=== PATIENT | female | born 1985 | race Caucasian/White ===

== ENCOUNTER 2018-06-14 19:43 | Emergency (ER) | payer OTHER ==
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
[2018-06-14] MEDS ORDERED: KETOROLAC TROMETHAMINE 60 MG/2 ML VIAL IM ONE (20:17)
[2018-06-14 20:18] VITALS: BP 123/62; PULSE 68; TEMP 98.3; BMI 41.5
[2018-06-14 21:22] LABS: HCG,QUALITATIVE URINE NEGATIVE
[2018-06-14] MEDS ORDERED: KETOROLAC TROMETHAMINE 60 MG/2 ML VIAL ONE (21:26)
[2018-06-14 21:35] LABS: URINE APPEARANCE CLEAR; URINE BILIRUBIN NEGATIVE (<2.0 mg/dL); URINE COLOR YELLOW; URINE GLUCOSE (UA) NEGATIVE (NEGATIVE); URINE KETONE NEGATIVE (NEGATIVE); URINE LEUK ESTERASE NEGATIVE (NEGATIVE); URINE NITRITE NEGATIVE (NEGATIVE); URINE PROTEIN NEGATIVE (NEGATIVE); URINE UROBILINOGEN NEGATIVE mg/dL (0.2-1.0)
[2018-06-14] MEDS ORDERED: CYCLOBENZAPRINE HCL 10 MG TABLET (FP) PO ONE (21:52)
[2018-06-14] MEDS ORDERED: CYCLOBENZAPRINE HCL 10 MG TABLET (FP) ONE (21:54)
--- NOTE | 2018-06-14 22:09 | PDOC ---
History of Present Illness - General Chief Complaint: Back Pain Stated Complaint: BACK PAIN Time Seen by Provider: 06/14/18 20:13 History Source: Patient Exam Limitations: No Limitations - History of Present Illness Initial Comments: 06/14/18 22:06 33-year-old female presented with low back pain worsened with standing and movement. Patient states has had muscle spasms in the past secondary to herniation of L3 L5. Patient states took Aleve this morning with no relief and so decided come to the ER. Patient denies saddle anesthesia, incontinence, or lower extremity weakness. Patient does complain of right sided sciatica. Occurred: reports: yesterday Severity: reports: moderate Pain Location: reports: back Method of Injury: Yes: unknown Modifying Factors: improves with: None Associated Symptoms (Fall): trouble walking Past History - Travel Traveled outside of the country in the last 30 days: No - Past Medical History Allergies/Adverse Reactions: Allergies Allergy/AdvReac Type Severity Reaction Status Date / Time Penicillins Allergy Severe Hives Verified 06/14/18 20:18 Home Medications: Ambulatory Orders Levothyroxine [Synthroid -] 25 mcg PO DAILY 04/19/16 Cyclobenzaprine HCl [Flexeril -] 5 mg PO TID PRN #12 tablet 06/14/18 Ibuprofen [Motrin -] 600 mg PO TID PRN #21 tablet 06/14/18 Asthma: No Cancer: No Cardiac Disorders: No COPD: No Diabetes: No HTN: No Seizures: No Thyroid Disease: Yes (hypo) - Surgical History Abdominal Surgery: Yes - Immunization History Immunization Up to Date: Yes - Suicide/Smoking/Psychosocial Hx Smoking Status: Yes Smoking History: Never smoked Have you smoked in the past 12 months: No Number of Cigarettes Smoked Daily: 0 If you are a former smoker, when did you quit?: 2009 Information on smoking cessation initiated: No Hx Alcohol Use: Yes (social) Drug/Substance Use Hx: No Substance Use Type: Alcohol Hx Substance Use Treatment: No Patient Lives Alone: No Lives with/in: spouse/SO Review of Systems - Review of Systems Able to Perform ROS?: No Constitutional: No: Symptoms Reported Musculoskeletal: Yes: Back Pain Integumentary: No: Symptoms Reported Neurological: No: Symptoms reported Hematologic/Lymphatic: No: Symptoms Reported *Physical Exam - Vital Signs Last Vital Signs Temp Pulse Resp BP Pulse Ox 98.3 F 68 17 123/62 100 06/14/18 20:15 06/14/18 20:15 06/14/18 20:15 06/14/18 20:15 06/14/18 20:15 - Physical Exam General Appearance: Yes: Nourished, Appropriately Dressed. No: Apparent Distress Musculoskeletal: positive: Vertebral Tenderness (L3-L4 and paraspinous bilaterally) Extremity: positive: Normal Capillary Refill. negative: Pedal Edema Integumentary: positive: Normal Color, Warm, Moist Neurologic: positive: Motor Strength 5/5 (ambulatory) ED Treatment Course - ADDITIONAL ORDERS Additional order review: Laboratory Results 06/14/18 08:30 Urine Color Yellow Urine Appearance Clear Urine pH 7.0 Ur Specific Marlow 1.027 Urine Protein Negative Urine Glucose (UA) Negative Urine Ketones Negative Urine Blood Negative Urine Nitrite Negative Urine Bilirubin Negative Urine Urobilinogen Negative Ur Leukocyte Esterase Negative Urine HCG, Qual Negative - Medications Given in the ED: ED Medications Discontinued Medications Generic Name Dose Route Start Last Admin Trade Name Freq PRN Reason Stop Dose Admin Cyclobenzaprine HCl 5 mg 06/14/18 21:52 06/14/18 21:56 Flexeril - PO 06/14/18 21:53 5 mg ONCE ONE Administration Ketorolac Tromethamine 60 mg 06/14/18 20:17 06/14/18 21:31 Toradol Injection - IM 06/14/18 20:18 60 mg ONCE ONE Administration Oxycodone/Acetaminophen 1 combo 06/14/18 21:52 06/14/18 21:56 Percocet 5/325 - PO 06/14/18 21:53 1 combo ONCE ONE Administration Medical Decision Making - Medical Decision Making 06/14/18 22:08 Patient with acute on chronic low back pain. Patient said at L3-L4 tenderness. Patient took Aleve with no relief. Patient ordered for 1 Percocet and 1 Flexeril. Patient will be discharged home with Motrin and Flexeril. *DC/Admit/Observation/Transfer Diagnosis at time of Disposition: Back pain - Discharge Dispostion Disposition: HOME Condition at time of disposition: Good - Referrals Referrals: Jenna Franks MD [Primary Care Provider] - - Patient Instructions Printed Discharge Instructions: DI for Low Back Pain Additional Instructions: Take medication as needed for discomfort. Avoid movements that triggered your discomfort. - Post Discharge Activity
== END 2018-06-14 22:10 | disposition home or self-care (01) ==
LOC: JERFT 19:43
PROC: 3E0233Z Introduction of Anti-inflammatory into Muscle, Percutaneous Approach (ICD-10-PCS; principal; 2018-06-14)
DX: M54.5 Low back pain (principal); G89.29 Other chronic pain; V89.2XXS Person injured in unspecified motor-vehicle accident, traffic, sequela; M51.26 Other intervertebral disc displacement, lumbar region
CPT/HCPCS: 81003; 84703; 99281-25

== ENCOUNTER 2019-06-11 06:23 | Emergency (ER) | payer OTHER ==
[2019-06-11 06:48] VITALS: BP 111/65; PULSE 75; TEMP 98.4; BMI 30.7
--- NOTE | 2019-06-11 08:05 | PDOC ---
History of Present Illness - General Chief Complaint: Back Pain Stated Complaint: BACK SPASM Time Seen by Provider: 06/11/19 07:44 - History of Present Illness Initial Comments: 06/11/19 08:33 34 y/o F hx of herniated disc,chronic back pain,recent gastric sleeve surgery and hypothyroidism presenting with 2 days of lower back pain. Pain radiates from her right lower back down to her knee. It is exacerbated by standing up straight and walking and alleviated by lying down. Naman offered some temporary relief but the pain has returned. She denies any trauma, fever, numbness, tingling, loss of sensation, weakness, frequency, urgency,dysuria or hematuria Past History - Past Medical History Allergies/Adverse Reactions: Allergies Allergy/AdvReac Type Severity Reaction Status Date / Time Penicillins Allergy Severe Hives Verified 06/11/19 06:46 Home Medications: Ambulatory Orders Levothyroxine [Synthroid -] 25 mcg PO DAILY 04/19/16 Cyclobenzaprine HCl [Flexeril -] 5 mg PO TID PRN #12 tablet 06/14/18 Ibuprofen [Motrin -] 600 mg PO TID PRN #21 tablet 06/14/18 Methocarbamol [Robaxin -] 500 mg PO BID 5 Days #10 tablet 06/11/19 Asthma: No Cancer: No Cardiac Disorders: No COPD: No Diabetes: No HTN: No Seizures: No Thyroid Disease: Yes (hypo) - Surgical History Abdominal Surgery: Yes - Immunization History Immunization Up to Date: Yes - Suicide/Smoking/Psychosocial Hx Smoking Status: Yes Smoking History: Current some day smoker Have you smoked in the past 12 months: No Number of Cigarettes Smoked Daily: 0 If you are a former smoker, when did you quit?: 2009 Information on smoking cessation initiated: No Hx Alcohol Use: Yes Drug/Substance Use Hx: No Substance Use Type: Alcohol Hx Substance Use Treatment: No *Physical Exam - Vital Signs Last Vital Signs Temp Pulse Resp BP Pulse Ox 98.4 F 75 18 111/65 99 06/11/19 06:25 06/11/19 06:25 06/11/19 06:25 06/11/19 06:25 06/11/19 06:25 - Physical Exam General Appearance: Yes: Nourished, Appropriately Dressed. No: Apparent Distress HEENT: positive: Normal Voice. negative: Scleral Icterus (R), Scleral Icterus ( L) Respiratory/Chest: positive: Lungs Clear, Normal Breath Sounds. negative: Respiratory Distress, Wheezing Cardiovascular: positive: Regular Rhythm, Regular Rate, S1, S2. negative: JVD Gastrointestinal/Abdominal: positive: Normal Bowel Sounds, Soft. negative: Pulsatile Mass Musculoskeletal: positive: Normal Inspection, Vertebral Tenderness, Other ( tenderness in the lower lumbar spine. tenderness to palpation of lower right back and hip. Able to ambulate but movements limited by pain.positive straight leg raise test.) Extremity: positive: Normal Capillary Refill, Normal Inspection. negative: Coldness Integumentary: positive: Dry, Warm. negative: Cyanotic, Erythema Neurologic: positive: Fully Oriented, Alert, Normal Mood/Affect Medical Decision Making - Medical Decision Making 06/11/19 08:24 34y/o F with hx of herniated disc, hypothyroidism, gastric sleeve surgery presenting with 2 days of back pain. -Toradol,Robaxin and Lidocaine patch for pain. Will observe for improvement. 06/11/19 09:22 Pt. reporting improved symptoms and wants to go home. Discharged with follow up with Dr. Melchor and a prescription for a muscle relaxant. *DC/Admit/Observation/Transfer Diagnosis at time of Disposition: Back pain Qualifiers: Back pain location: low back pain Chronicity: acute Back pain laterality: right Sciatica presence: unspecified whether sciatica present Qualified Code(s) : M54.5 - Low back pain - Discharge Dispostion Disposition: HOME Condition at time of disposition: Stable - Prescriptions Prescriptions: Methocarbamol [Robaxin -] 500 mg PO BID 5 Days #10 tablet - Referrals Referrals: Jenna Franks MD [Primary Care Provider] - Jarad Mckay MD, FAANS [Staff Physician] - - Patient Instructions Printed Discharge Instructions: Low Back Pain Additional Instructions: You were seen in the ER for back pain and treated with a muscle relaxant, lidocaine patch and some ketorolac (NSAIDS). A muscle relaxant has been prescribed for home use. Take as prescribed. Follow up with neurosurgery within the week.Return to the ER if you experience worsening pain, fevers, sudden loss of bowel and bladder control. - Post Discharge Activity
[2019-06-11] MEDS ORDERED: KETOROLAC TROMETHAMINE 60 MG/2 ML VIAL IM ONE (08:21)
[2019-06-11] MEDS ORDERED: LIDOCAINE 5% TOPICAL PATCH TP ONE (08:21)
[2019-06-11] MEDS ORDERED: METHOCARBAMOL 500 MG TABLET PO ONE (08:21)
[2019-06-11] MEDS ORDERED: METHOCARBAMOL 500 MG TABLET ONE (08:30)
[2019-06-11] MEDS ORDERED: LIDOCAINE 5% TOPICAL PATCH ONE (08:30)
[2019-06-11] MEDS ORDERED: KETOROLAC TROMETHAMINE 60 MG/2 ML VIAL ONE (08:30)
--- NOTE | 2019-06-11 09:10 | PDOC ---
Attending Attestation - Resident Resident Name: Jericho Villar - ED Attending Attestation I have performed the following: I have examined & evaluated the patient, The case was reviewed & discussed with the resident, I agree w/resident's findings & plan - HPI HPI: 06/11/19 09:07 Healthy 34-year-old female with history of sciatic nerve pain and lumbar herniated disks causing back pain in the past, gastric sleeve in January presents now with exacerbation of her low back pain for the past 2 days. Patient stated her 3-year-old son while at the beach 2 days ago and felt a twinge in his lower back, since then has had progressive sharp discomfort across her lower back radiating down her left hamstring to her knee. No associated weakness or numbness, no bowel or bladder issues, no fall or direct injury, no fevers or chills. Because of the recent sleeve, took a single dose of Aleve yesterday and was able to work throughout the day presents for evaluation secondary to increased pain overnight. - Physicial Exam PE: 06/11/19 09:08 Vital signs normal Well-appearing and comfortable seated in stretcher No midline spine tenderness to palpation, reproducible discomfort to palpation in the left low back without swelling or bruising or rash. 5 out of 5 suction and extension of bilateral hips/knees/ankle/toes. Neurovascular intact distally. - Medical Decision Making 06/11/19 09:09 Healthy 34-year-old female with history of back pain secondary to sciatica and herniated disks presents now with atraumatic low back pain for 2 days most consistent with low back strain with sciatic component, neurologically intact without other red flags on history or physical exam. Received single dose Toradol, muscle relaxant, lidocaine patch No indication for emergent imaging Ambulating, feels better, requesting discharge Understands return criteria
== END 2019-06-11 09:37 | disposition home or self-care (01) ==
LOC: JER 06:23
PROC: 3E0233Z Introduction of Anti-inflammatory into Muscle, Percutaneous Approach (ICD-10-PCS; principal; 2019-06-11)
DX: M54.5 Low back pain (principal); E03.9 Hypothyroidism, unspecified; Z87.39 Personal history of other diseases of the musculoskeletal system and connective tissue; Z98.84 Bariatric surgery status
CPT/HCPCS: 96372; 99282-25

== ENCOUNTER 2019-10-09 22:37 | Emergency (ER) | payer OTHER ==
[2019-10-09 22:59] VITALS: TEMP 97.8; BMI 29.6
[2019-10-09] MEDS ORDERED: MAG HYDROX/AL HYDROX/SIMETH 30 ML UNIT-DOSE CUP PO ONE (23:13)
[2019-10-09] MEDS ORDERED: FAMOTIDINE 20 MG/50 ML IVPB 20 MG/50 ML MG IVPB ONE ×2 (23:14→23:21)
[2019-10-09] MEDS ORDERED: ACETAMINOPHEN 1000 MG/100 ML VIAL (NON FORMULARY) IVPB ONE (23:14)
[2019-10-09] MEDS ORDERED: METOCLOPRAMIDE HCL INJECTION 10 MG/2 ML VIAL IVPUSH ONE (23:14)
[2019-10-09] MEDS ORDERED: METOCLOPRAMIDE HCL INJECTION 10 MG/2 ML VIAL ONE (23:20)
[2019-10-09] MEDS ORDERED: ACETAMINOPHEN INJECTION 100 ML IVPB ONE (23:21)
[2019-10-09] MEDS ORDERED: MAG HYDROX/AL HYDROX/SIMETH 30 ML UNIT-DOSE CUP ONE (23:21)
--- NOTE | 2019-10-09 23:38 | PDOC ---
History of Present Illness - General Chief Complaint: Chest Pain Stated Complaint: CHEST PAIN Time Seen by Provider: 10/09/19 22:56 - History of Present Illness Initial Comments: 10/09/19 23:39 34F with pmh of gastric sleeve placement in January, hypothyroidism and chronic back pain presents with episode of 4/10 pressure-like sternal chest pain/ epigastric pain radiating to her neck and back around 8pm today for 20min. Episode onset was sudden and progressively faded. She thought the pain was from gas so she took gas-x. Also complains of 2 week long nightly vomiting and night sweats, told her surgeon about, scheduled her for endoscopy in October. No episodes of vomiting today. Tolerates food normally otherwise throughout the day. Denies fever, sob, dysuria, constipation or diarrhea. Patient now asymptomatic, except for mild headache. Past History - Past Medical History Allergies/Adverse Reactions: Allergies Allergy/AdvReac Type Severity Reaction Status Date / Time Penicillins Allergy Severe Hives Verified 06/11/19 06:46 Home Medications: Ambulatory Orders Multivitamin [One-Daily Multi-Vitamin] 1 each PO DAILY 10/10/19 Omeprazole 40 mg PO DAILY 10/10/19 Ondansetron [Zofran *Odt*] 4 mg SL BID #14 od.tablet 10/10/19 Asthma: No Cancer: No Cardiac Disorders: No COPD: No Diabetes: No HTN: No Seizures: No Thyroid Disease: Yes (hypo) - Surgical History Abdominal Surgery: Yes - Immunization History Immunization Up to Date: Yes - Psycho Social/Smoking Cessation Hx Smoking Status: Yes Smoking History: Never smoked Have you smoked in the past 12 months: No Number of Cigarettes Smoked Daily: 0 If you are a former smoker, when did you quit?: 2009 Hx Alcohol Use: Yes ("Occasional") Drug/Substance Use Hx: No Substance Use Type: Alcohol Hx Substance Use Treatment: No Cardiac Specific PMH - Complaint Specific PMHX Angina: No Pulmonary Embolus: No Review of Systems - Review of Systems Able to Perform ROS?: Yes Is the patient limited Monegasque proficient: No Constitutional: No: Symptoms Reported HEENTM: No: Symptoms Reported Respiratory: No: Symptoms reported Cardiac (ROS): Yes: See HPI ABD/GI: Yes: See HPI Musculoskeletal: No: Symptoms Reported Integumentary: No: Symptoms Reported Neurological: No: Symptoms reported All Other Systems: Reviewed and Negative *Physical Exam - Vital Signs Last Vital Signs Temp Pulse Resp BP Pulse Ox 97.8 F 77 20 108/57 L 97 10/09/19 22:49 10/09/19 22:49 10/09/19 22:49 10/09/19 22:49 10/09/19 22:49 - Physical Exam General Appearance: Yes: Nourished, Appropriately Dressed. No: Apparent Distress HEENT: positive: EOMI, MEENA, Normal ENT Inspection Respiratory/Chest: positive: Lungs Clear, Normal Breath Sounds. negative: Chest Tender, Respiratory Distress Cardiovascular: positive: Regular Rhythm, Regular Rate, S1, S2 Gastrointestinal/Abdominal: positive: Normal Bowel Sounds, Tender (epigastric), Flat, Soft, Guarding Musculoskeletal: positive: Normal Inspection. negative: CVA Tenderness Extremity: positive: Normal Capillary Refill, Normal Inspection, Normal Range of Motion Neurologic: positive: Fully Oriented, Alert, Normal Mood/Affect, Normal Response , Motor Strength 5/5 ED Treatment Course - LABORATORY CBC & Chemistry Diagram: 10/09/19 23:30 10/09/19 23:35 - ADDITIONAL ORDERS Additional order review: Laboratory Results 10/09/19 10/09/19 10/09/19 23:35 23:35 23:35 Sodium 139 Potassium 4.5 Chloride 106 Carbon Dioxide 29 Anion Gap 3 L BUN 21.4 H Creatinine 0.6 Est GFR (CKD-EPI)AfAm 136.87 Est GFR (CKD-EPI)NonAf 118.09 Random Glucose 86 Calcium 9.0 Total Bilirubin 0.4 AST 27 ALT 45 Alkaline Phosphatase 104 Troponin I < 0.02 Total Protein 6.7 Albumin 3.7 Lipase 146 Serum , Qual Negative 10/09/19 23:30 RBC 4.25 MCV 89.4 MCHC 33.6 RDW 12.6 MPV 9.2 Neutrophils % 54.0 Lymphocytes % 37.9 Monocytes % 5.4 Eosinophils % 2.2 Basophils % 0.5 - RADIOLOGY Radiology Studies Ordered: Category Date Time Status CHEST PA & LAT [RAD] Stat Radiology 10/10/19 00:45 Taken - Medications Given in the ED: ED Medications Discontinued Medications Generic Name Dose Route Start Last Admin Trade Name Freq PRN Reason Stop Dose Admin Acetaminophen 1,000 mg 10/09/19 23:14 10/09/19 23:47 Ofirmev Injection - IVPB 10/09/19 23:15 1,000 mg ONCE ONE Administration Al Hydroxide/Mg Hydroxide 30 ml 10/09/19 23:13 10/09/19 23:47 Mylanta Oral Suspension - PO 10/09/19 23:14 30 ml ONCE ONE Administration Famotidine/Sodium Chloride 20 mg in 50 mls @ 100 mls/hr 10/09/19 23:14 23:47 Pepcid 20 Mg Premixed Ivpb - IVPB 10/09/19 23:43 100 mls/hr ONCE ONE Administration Metoclopramide HCl 10 mg 10/09/19 23:14 10/09/19 23:47 Reglan Injection - IVPUSH 10/09/19 23:15 10 mg ONCE ONE Administration Medical Decision Making - Medical Decision Making 10/09/19 23:52 34F with chest pain/epigastric pain episode. Will check EKG/Trops but also consider GI workup as likely etiology due to surgical histopry of gastric sleeve. Tylenol, reglan and pepcid for pain. EKG Normal sinus rhythm, vent rate: 70, OK: 154, QRS: 84, QT/QTC: 396/427 CXR: pending Labs pending All labs WNL, POCUS exam of the gallbladder WNL. Patient feels better ok to d/c with zofran Rx. Discharge - Discharge Information Problems reviewed: Yes Clinical Impression/Diagnosis: Epigastric pain, Chest pain Condition: Improved Disposition: HOME - Admission No - Follow up/Referral - Patient Discharge Instructions Patient Printed Discharge Instructions: DI for Atypical Chest Pain Additional Instructions: Come back to the emergency department for any new, worsening or concerning symptom. Follow up with your primary care physician within the next 3 days. - Post Discharge Activity Work/Back to School Note: Back to Work
[2019-10-09 23:44] LABS: BASO % 0.5 % (0-2.0); EOS % 2.2 % (0-4.5); HEMOGLOBIN 12.8 GM/dL (10.7-15.3); LYMPH % 37.9 % (8-40); MCH 30.1 pg (25.7-33.7); MCHC 33.6 g/dl (32.0-36.0); MEAN CELL VOLUME 89.4 fl (80-96); MEAN PLT VOLUME 9.2 fl (7.5-11.1); MONO % 5.4 % (3.8-10.2); PLATELET COUNT 204 K/MM3 (134-434); RBC 4.25 M/mm3 (3.60-5.2); RDW 12.6 % (11.6-15.6); WHITE BLOOD COUNT 9.6 K/mm3 (4.0-10.0)
[2019-10-10 00:07] LABS: ALBUMIN 3.7 g/dl (3.4-5.0); BILIRUBIN,TOTAL 0.4 mg/dL (0.2-1); BLOOD UREA NITROGEN 21.4 mg/dL (7-18); CREATININE 0.6 mg/dL (0.55-1.3); POTASSIUM 4.5 mmol/L (3.5-5.1); TOT PROT 6.7 g/dl (6.4-8.2)
--- NOTE | 2019-10-10 00:35 | PDOC ---
Attending Attestation - Resident Resident Name: Hipolito Carvalho - ED Attending Attestation I have performed the following: I have examined & evaluated the patient, The case was reviewed & discussed with the resident, I agree w/resident's findings & plan - HPI HPI: 10/10/19 00:34 34 YOF with h/o gastric sleeve (2019), herniated disc, chronic back pain, hypothyroidism. nausea/Vomiting x 2 weeks, today with midline sternal pressure like chest pain, a/w epigastric pain, radiates up to neck and back. +heart burn prior to onset of sx. Episode lasted 20 minute, self resolved. - Physicial Exam PE: 10/10/19 00:34 Agree with the resident's HPI and PE as documented in the electronic medical record. NAD, well appearing, EOMI, PERRL, nl conjunctiva, anicteric; neck supple. lungs clear, RRR, abdomen soft +epigastric TTP, no rebound, guarding. no CVAT. Back nontender. [place]END x4, no focal neuro deficits. No peripheral edema. normal color for ethnicity, WWP. - Medical Decision Making 10/10/19 00:40 Vital Signs Temp Pulse Resp BP Pulse Ox 97.8 F 77 20 108/57 L 97 10/09/19 22:49 10/09/19 22:49 10/09/19 22:49 10/09/19 22:49 10/09/19 22:49 DDx abdominal pain: Renal colic, biliary colic, metabolic/electrolyte derangements. GERD, PUD, esophageal spasm, pancreatitis, hepatitis, constipation , colitis, gastroenteritis, cholecystitis, UTI, pyelonephritis, ileus, SBO, medication side effect, hernia, appendicitis, diverticulitis, no systemic findings, VS reviewed and wnl. nontoxic, nonperitoneal. labs and lytes wnll, reassuring. lipase normal, LFTs normal. given IVF, pepcid, reglan, maalox - reassess biliary pocus - neg for stones, small sludge, neg sharp's, normal GBW and CBD for age. no e/o acute cholecystitis. no peritoneal findings on reassessment. CXR clear. no e/o perf, normal cardiac silhouette. no infiltrate or edema. has plans to see GI next month, and surgeon pt is s/p gastric sleeve, so less likely internal hernia/obstruction. Pt to be discharged in stable condition. Patient made aware of clinical impression, treatment recommendations and disposition plan, return precautions discussed (including but not limited to new or persistent/worsening symptoms, pain, fevers, or signs of infection, chest pain, respiratory distress, inability to tolerate oral intake, dehydration, syncope, or neurologic changes) . Follow up with PMD and/or GI specialist as recommended, follow up information provided, take medications as instructed for duration of time. continue with supportive care, avoid triggers and precipitants. All questions answered to patient's satisfaction and expressed understanding and comfort with this. At the time of discharge, the patient is alert, clinically improved, tolerating po and verbalizes understanding of instructions, satisfied with the care received and felt comfortable with the plan. Patient does not suffer from an acute life- threatening medical condition at this time and is safe for outpatient follow- up. 10/10/19 01:29 10/10/19 01:31 10/10/19 01:32 Heart Score/ECG Review #1 ECG reviewed & interpreted by me at: 22:40 General ECG Interpretation: Sinus Rhythm, Normal Rate, Normal Intervals 10/10/19 00:35 EKG normal sinus rhythm at 70 bpm, no interval abnormalities, narrow QRS, ST and T wave segments and morphology normal. Procedures - Bedside Ultrasound Bedside Ultrasound: Gallbladder Remarks: 10/10/19 01:28 POCUS biliary exam: Indication: abdominal pain Views: gallbladder long and s hort axis, CBD Findings: no stones or GB wall thickening or pericholecystic fluid, (AGBW 1.97 mm),. normal CBD <3mm for age. Neg sono murphys. small sludge. Impression: no acute findings. No cholelithiasis or cholecystitis.
[2019-10-10 01:48] VITALS: BP 106/66; PULSE 70
--- NOTE | 2019-10-10 12:38 | EKG ---
Test Reason : Blood Pressure : / mmHG Vent. Rate : 070 BPM Atrial Rate : 070 BPM P-R Int : 154 ms QRS Dur : 084 ms QT Int : 396 ms P-R-T Axes : 000 058 030 degrees QTc Int : 427 ms NORMAL SINUS RHYTHM NORMAL ECG WHEN COMPARED WITH ECG OF 19-APR-2016 22:05, NO SIGNIFICANT CHANGE WAS FOUND Confirmed by LIA LANDON MD ([id number]) on 10/10/2019 12:37:38 PM Referred By: Confirmed By:LIA LANDON MD
== END 2019-10-10 01:46 | disposition home or self-care (01) ==
LOC: JER 22:37
PROC: 3E033NZ Introduction of Analgesics, Hypnotics, Sedatives into Peripheral Vein, Percutaneous Approach (ICD-10-PCS; principal; 2019-10-09)
PROC: 3E033GC Introduction of Other Therapeutic Substance into Peripheral Vein, Percutaneous Approach (ICD-10-PCS; 2019-10-09)
DX: R07.9 Chest pain, unspecified (principal); R10.13 Epigastric pain; Z88.0 Allergy status to penicillin; Z98.84 Bariatric surgery status; Z87.891 Personal history of nicotine dependence; E03.9 Hypothyroidism, unspecified
CPT/HCPCS: 36415; 71046-TC-FY; 76705-TC; 80053; 83690; 84484; 84703; 85025; 93005; 93010; 99284-25; J0131

== ENCOUNTER 2019-12-30 04:45 | Day surgery (SDC) | payer OTHER ==
[2019-12-27 08:27] VITALS: BMI 30.2
[2019-12-30] MEDS ORDERED: IBUPROFEN 400 MG TABLET (FP) PO PRN (08:47)
[2019-12-30] MEDS ORDERED: ACETAMINOPHEN 325 MG TABLET (FP) PO PRN (08:47)
--- NOTE | 2019-12-30 08:47 | HP ---
History & Physical Update - History History: No Change - Physical Physical: No Change - Assessment Assessment: No Change - Plan Plan: No Change (No change in HP)
[2019-12-30] MEDS ORDERED: MIDAZOLAM HCL 2 MG/2 ML SINGLE DOSE VIAL ONE (12:02)
[2019-12-30] MEDS ORDERED: LIDOCAINE HCL/PF 2% SDV 5ML VIAL ONE (12:11)
[2019-12-30] MEDS ORDERED: PROPOFOL 20 ML ONE ×2 (12:11→12:15)
[2019-12-30] MEDS ORDERED: DEXAMETHASONE SOD PHOSPHATE 4 MG/1 ML VIAL ONE (12:25)
--- NOTE | 2019-12-30 12:27 | OP ---
Operative Note - Note: Operative Date: 12/30/19 Pre-Operative Diagnosis: Lost IUD Operation: Hysteroscopic IUD removal Post-Operative Diagnosis: Same as Pre-op Anesthesia: General Estimated Blood Loss (mls): 2
[2019-12-30] MEDS ORDERED: oxyCODONE HCL 5 MG TABLET PO PRN (13:17)
[2019-12-30] MEDS ORDERED: ONDANSETRON 4 MG/2 ML VIAL IVPUSH PRN (13:17)
[2019-12-30] MEDS ORDERED: KETOROLAC TROMETHAMINE 30 MG/1 ML VIAL IM PRN (13:18)
[2019-12-30] MEDS ORDERED: LACTATED RINGERS SOLUTION 1,000 ML IV SCH (13:30)
[2019-12-30 15:45] VITALS: BP 125/67; PULSE 78; TEMP 97
--- NOTE | 2019-12-31 16:08 | PATH ---
Surgical Pathology Report Patient Name: GARETH HERNÁNDEZ Med. Rec. #: [id number] /Age/Gender: 1985 (Age: 34) / F Account: [id number] Location: [facility] SURGICAL Taken: 12/30/2019 Received: 12/30/2019 Reported: 12/31/2019 Physicians: Lizzie Philippe M.D. Specimen(s) Received REMOVED IUD Clinical History IUD removal needed Final Diagnosis INTRAUTERINE DEVICE (IUD), REMOVAL: FOREIGN BODY MATERIAL CONSISTENT WITH INTRAUTERINE DEVICE (IUD). MACROSCOPIC DIAGNOSIS. Electronically Signed Vicki Saeed M.D. Gross Description Received fresh labeled "removed IUD," is a 3 cm in length T-shaped device with attached string, consistent with an IUD. No soft tissue is present. No sections are submitted, gross only. /12/30/2019 [facility]12/30/2019
--- NOTE | 2020-01-03 06:33 | OP ---
DATE OF OPERATION: 12/30/2019 PREOPERATIVE DIAGNOSIS: Lost intrauterine device. OPERATION: Laparoscopic intrauterine device removal. POSTOPERATIVE DIAGNOSIS: Lost intrauterine device. SURGEON: Lizzie Philippe MD ESTIMATED BLOOD LOSS: 2 mL. PROCEDURE: Patient was taken to the operating room and placed in dorsal lithotomy position, prepped and draped in the usual sterile fashion. A timeout was performed in accordance with hospital regulation. Speculum was placed in vagina. Anterior lip of the cervix grasped with single-tooth tenaculum. Cervix was then dilated to accommodate the operative hysteroscope. IUD was then grasped and removed. Endometrial cavity was noted to be normal. All instruments were removed. Patient had tolerated procedure well. Estimated blood loss 2 mL. LIZZIE PHILIPPE M.D. [id number]
== END 2019-12-30 15:45 | disposition home or self-care (01) ==
LOC: JASU-SURG 04:45
PROVIDERS: ATTEND Obstetrics & Gynecology
PROC: 0UC98ZZ Extirpation of Matter from Uterus, Via Natural or Artificial Opening Endoscopic (ICD-10-PCS; principal; 2019-12-30 12:00)
DX: T83.89XA Other specified complication of genitourinary prosthetic devices, implants and grafts, initial encounter (principal)
CPT/HCPCS: 81025; 88300-TC; 94760

== ENCOUNTER 2020-11-23 20:23 | Emergency (ER) | payer OTHER ==
[2020-11-23 20:36] VITALS: BP 111/50; PULSE 72; TEMP 97.2; BMI 32.5
[2020-11-23] MEDS ORDERED: diazePAM 5 MG TABLET PO ONE (21:06)
[2020-11-23] MEDS ORDERED: KETOROLAC TROMETHAMINE 30 MG/1 ML VIAL IM ONE (21:06)
[2020-11-23] MEDS ORDERED: diazePAM 5 MG TABLET ONE (21:12)
[2020-11-23] MEDS ORDERED: KETOROLAC TROMETHAMINE 30 MG/1 ML VIAL ONE (21:12)
== END 2020-11-23 21:42 | disposition home or self-care (01) ==
LOC: JER 20:23
PROC: 3E0233Z Introduction of Anti-inflammatory into Muscle, Percutaneous Approach (ICD-10-PCS; principal; 2020-11-23)
DX: M54.42 Lumbago with sciatica, left side (principal)
CPT/HCPCS: 99284-25

== ENCOUNTER 2021-04-16 02:21 | Emergency (ER) | payer OTHER ==
[2021-04-16 02:26] VITALS: BP 105/64; PULSE 81; TEMP 97.7; BMI 34.1
[2021-04-16] MEDS ORDERED: LIDOCAINE 5% TOPICAL PATCH TP ONE (02:35)
[2021-04-16] MEDS ORDERED: ACETAMINOPHEN 325 MG TABLET (FP) PO ONE (02:35)
[2021-04-16] MEDS ORDERED: ACETAMINOPHEN 325 MG TABLET (FP) ONE (02:40)
[2021-04-16] MEDS ORDERED: LIDOCAINE 5% TOPICAL PATCH ONE (02:40)
[2021-04-16] MEDS ORDERED: KETOROLAC TROMETHAMINE 30 MG/1 ML VIAL IM ONE (04:10)
[2021-04-16] MEDS ORDERED: KETOROLAC TROMETHAMINE 30 MG/1 ML VIAL ONE (04:14)
[2021-04-16] MEDS ORDERED: LIDOCAINE PATCH REMOVAL MC SCH (22:00)
== END 2021-04-16 05:36 | disposition home or self-care (01) ==
LOC: JER 02:21
PROC: 3E0233Z Introduction of Anti-inflammatory into Muscle, Percutaneous Approach (ICD-10-PCS; principal; 2021-04-16)
DX: M54.42 Lumbago with sciatica, left side (principal)
CPT/HCPCS: 84703; 99284-25

== ENCOUNTER 2021-04-22 10:28 | Emergency (ER) | payer OTHER ==
[2021-04-22 10:41] VITALS: BP 102/57; PULSE 78; TEMP 98.5; BMI 34.1
[2021-04-22] MEDS ORDERED: METHOCARBAMOL 500 MG TABLET PO ONE ×2 (10:46→11:04)
[2021-04-22] MEDS ORDERED: LIDOCAINE 5% TOPICAL PATCH TP ONE (10:46)
[2021-04-22] MEDS ORDERED: METHOCARBAMOL 500 MG TABLET ONE (10:49)
[2021-04-22] MEDS ORDERED: LIDOCAINE 5% TOPICAL PATCH ONE ×2 (10:49→10:53)
== END 2021-04-22 11:33 | disposition home or self-care (01) ==
LOC: JERFT 10:28
DX: M54.41 Lumbago with sciatica, right side (principal)
CPT/HCPCS: 99283-25

== ENCOUNTER 2021-11-07 20:47 | Emergency (ER) | payer OTHER ==
[2021-11-07] MEDS ORDERED: LIDOCAINE 5% TOPICAL PATCH TP ONE (21:00)
[2021-11-07] MEDS ORDERED: KETOROLAC TROMETHAMINE 30 MG/1 ML VIAL IM ONE (21:00)
[2021-11-07] MEDS ORDERED: ACETAMINOPHEN 325 MG TABLET (FP) PO ONE (21:00)
[2021-11-07] MEDS ORDERED: LIDOCAINE 5% TOPICAL PATCH ONE (21:03)
[2021-11-07] MEDS ORDERED: ACETAMINOPHEN 325 MG TABLET (FP) ONE (21:03)
[2021-11-07] MEDS ORDERED: KETOROLAC TROMETHAMINE 30 MG/1 ML VIAL ONE (21:03)
[2021-11-07 21:24] VITALS: BP 124/76; PULSE 75; BMI 34.1
[2021-11-07] MEDS ORDERED: LIDOCAINE PATCH REMOVAL MC SCH (22:00)
== END 2021-11-07 23:14 | disposition home or self-care (01) ==
LOC: JER 20:47
PROC: 3E0233Z Introduction of Anti-inflammatory into Muscle, Percutaneous Approach (ICD-10-PCS; principal; 2021-11-07)
DX: M54.50 Low back pain, unspecified (principal)
CPT/HCPCS: 99284-25

== ENCOUNTER 2021-12-20 05:17 | Emergency (ER) | payer OTHER ==
[2021-12-20 05:58] VITALS: BP 120/78; PULSE 75; TEMP 97.7; BMI 25.0
== END 2021-12-20 05:45 | disposition home or self-care (01) ==
LOC: JER 05:17
DX: R09.81 Nasal congestion (principal); R10.9 Unspecified abdominal pain; R19.7 Diarrhea, unspecified; R06.02 Shortness of breath
CPT/HCPCS: 87804; 99283-25; C9803; U0003; U0005

== ENCOUNTER 2022-03-04 23:48 | Emergency (ER) | payer OTHER ==
[2022-03-05 00:14] VITALS: BP 112/65; PULSE 74; BMI 34.1
[2022-03-06 16:07] LABS: SARS-CoV-2 NAA Detected (Not Detected)
== END 2022-03-05 01:12 | disposition home or self-care (01) ==
LOC: JER 23:48
DX: B34.9 Viral infection, unspecified (principal)
CPT/HCPCS: 87804; 99283-25; C9803-CS; U0003; U0005

== ENCOUNTER 2022-04-12 07:51 | Emergency (ER) | payer OTHER ==
[2022-04-12 08:02] VITALS: BP 99/55; PULSE 81; TEMP 98; BMI 35.7
[2022-04-12] MEDS ORDERED: KETOROLAC TROMETHAMINE 30 MG/1 ML VIAL IM ONE (08:15)
[2022-04-12] MEDS ORDERED: CYCLOBENZAPRINE HCL 10 MG TABLET (FP) PO ONE (08:15)
[2022-04-12] MEDS ORDERED: LIDOCAINE 5% TOPICAL PATCH TP ONE (08:15)
[2022-04-12] MEDS ORDERED: LIDOCAINE 5% TOPICAL PATCH ONE (08:17)
[2022-04-12] MEDS ORDERED: CYCLOBENZAPRINE HCL 10 MG TABLET (FP) ONE (08:17)
[2022-04-12] MEDS ORDERED: KETOROLAC TROMETHAMINE 30 MG/1 ML VIAL ONE (08:17)
[2022-04-12] MEDS ORDERED: DEXAMETHASONE SOD PHOSPHATE 10 MG/1 ML VIAL IM ONE (08:57)
[2022-04-12] MEDS ORDERED: DEXAMETHASONE SOD PHOSPHATE 10 MG/1 ML VIAL ONE (09:35)
== END 2022-04-12 10:06 | disposition home or self-care (01) ==
LOC: JER 07:51 → JERFT 07:51
PROC: 3E023GC Introduction of Other Therapeutic Substance into Muscle, Percutaneous Approach (ICD-10-PCS; principal; 2022-04-12)
PROC: 3E0333Z Introduction of Anti-inflammatory into Peripheral Vein, Percutaneous Approach (ICD-10-PCS; 2022-04-12)
DX: M54.50 Low back pain, unspecified (principal)
CPT/HCPCS: 99284-25; J1100

== ENCOUNTER 2023-01-21 03:03 | Emergency (ER) | payer OTHER ==
[2023-01-21] MEDS ORDERED: LIDOCAINE 5% TOPICAL PATCH TP ONE (03:30)
[2023-01-21] MEDS ORDERED: METHOCARBAMOL 500 MG TABLET PO ONE (03:30)
[2023-01-21] MEDS ORDERED: KETOROLAC TROMETHAMINE 60 MG/2 ML VIAL IM ONE (03:30)
[2023-01-21] MEDS ORDERED: METHOCARBAMOL 500 MG TABLET ONE (03:34)
[2023-01-21] MEDS ORDERED: LIDOCAINE 5% TOPICAL PATCH ONE (03:34)
[2023-01-21] MEDS ORDERED: LACTATED RINGERS SOLUTION 1000 ML INFUS.BAG IV ONE (03:34)
[2023-01-21] MEDS ORDERED: KETOROLAC TROMETHAMINE 15 MG/ML VIAL IVPUSH ONE (03:34)
[2023-01-21] MEDS ORDERED: KETOROLAC TROMETHAMINE 30 MG/1 ML VIAL ONE (03:35)
[2023-01-21 03:38] VITALS: BP 107/67; PULSE 80; RESP 18; TEMP 98.1; BMI 33.3
[2023-01-21] MEDS ORDERED: ACETAMINOPHEN 1000 MG/100 ML BAG IVPB ONE (04:21)
[2023-01-21] MEDS ORDERED: ACETAMINOPHEN INJECTION 100 ML IVPB ONE (04:28)
[2023-01-21] MEDS ORDERED: LIDOCAINE PATCH REMOVAL MC SCH (22:00)
== END 2023-01-21 06:34 | disposition home or self-care (01) ==
LOC: JER 03:03
PROC: 3E023GC Introduction of Other Therapeutic Substance into Muscle, Percutaneous Approach (ICD-10-PCS; principal; 2023-01-21)
PROC: 3E033GC Introduction of Other Therapeutic Substance into Peripheral Vein, Percutaneous Approach (ICD-10-PCS; principal; 2023-01-21)
DX: M54.50 Low back pain, unspecified (principal); X50.9XXA Other and unspecified overexertion or strenuous movements or postures, initial encounter
CPT/HCPCS: 99284-25

== ENCOUNTER 2023-09-14 00:24 | Emergency (ER) | payer OTHER ==
[2023-09-14 00:35] VITALS: BP 132/80; PULSE 79; RESP 18; TEMP 97.7; BMI 36.2
[2023-09-14] MEDS ORDERED: DEXAMETHASONE 4 MG TABLET (FP) PO ONE (00:38)
[2023-09-14] MEDS ORDERED: DEXAMETHASONE 4 MG TABLET (FP) ONE (00:45)
[2023-09-14] MEDS: ALBUTEROL SO4 2.5/IPRATROPIUM 0.5 INH SOL 3 ML VIAL.NEB. NEB SCH ×3 (00:45→01:17)
[2023-09-14] MEDS ORDERED: ACETAMINOPHEN 1000 MG/100 ML BAG IVPB ONE (01:05)
[2023-09-14] MEDS ORDERED: SODIUM CHLORIDE 0.9% 500 ML INFUS.BAG IV ONE (01:05)
[2023-09-14] MEDS ORDERED: ACETAMINOPHEN INJECTION 100 ML IVPB ONE (01:17)
[2023-09-14] MEDS ORDERED: KETOROLAC TROMETHAMINE 30 MG/1 ML VIAL IVPUSH ONE (02:06)
[2023-09-14] MEDS ORDERED: KETOROLAC TROMETHAMINE 30 MG/1 ML VIAL ONE (02:25)
== END 2023-09-14 03:03 | disposition home or self-care (01) ==
LOC: JER 00:24
PROC: 3E033NZ Introduction of Analgesics, Hypnotics, Sedatives into Peripheral Vein, Percutaneous Approach (ICD-10-PCS; principal; 2023-09-14)
PROC: 3E033NZ Introduction of Analgesics, Hypnotics, Sedatives into Peripheral Vein, Percutaneous Approach (ICD-10-PCS; 2023-09-14)
PROC: 3E0F7GC Introduction of Other Therapeutic Substance into Respiratory Tract, Via Natural or Artificial Opening (ICD-10-PCS; 2023-09-14)
DX: R09.81 Nasal congestion (principal); J40 Bronchitis, not specified as acute or chronic; J06.9 Acute upper respiratory infection, unspecified; R51.9 Headache, unspecified; Z20.822 Contact with and (suspected) exposure to COVID-19
CPT/HCPCS: 0241U-QW; 71046-TC-FY; 87651; 99284-25

== ENCOUNTER 2024-04-26 23:42 | Emergency (ER) | payer OTHER ==
[2024-04-26 23:47] VITALS: BP 105/70; PULSE 75; RESP 18; TEMP 97.8; BMI 32.5
[2024-04-27 00:29] LABS: EPI CELLS 9 /uL (0-25.1); HYALINE CASTS 1 /uL (0-3.1); PH,URINE 5.5 (5.0-8.0); URINE APPEARANCE TURBID; URINE BACTERIA 35 /uL (0-1359); URINE BILIRUBIN NEGATIVE (NEGATIVE); URINE COLOR DK YELLOW; URINE GLUCOSE (UA) NEGATIVE (NEGATIVE); URINE KETONE TRACE (NEGATIVE); URINE LEUK ESTERASE 2+ (NEGATIVE); URINE NITRITE NEGATIVE (NEGATIVE); URINE PROTEIN 1+ (NEGATIVE); URINE RBC 586 /uL (0-23.9); URINE WBC 5758 /uL (0-25.8)
== END 2024-04-27 01:09 | disposition home or self-care (01) ==
LOC: JER 23:42
DX: R30.0 Dysuria (principal)
CPT/HCPCS: 81003; 84703; 87086; 99283-25

== ENCOUNTER 2024-09-02 01:56 | Emergency (ER) | payer OTHER ==
[2024-09-02 02:05] VITALS: BP 107/55; PULSE 66; RESP 18; TEMP 97.9; BMI 33.3
[2024-09-02] MEDS ORDERED: ONDANSETRON 4 MG/2 ML VIAL ONE (02:47)
[2024-09-02] MEDS ORDERED: ACETAMINOPHEN INJECTION 100 ML ONE (02:47)
[2024-09-02] MEDS: ONDANSETRON 4 MG/2 ML VIAL IVPUSH ONE (03:01)
[2024-09-02] MEDS: ACETAMINOPHEN 1000 MG/100 ML BAG IVPB ONE (03:01)
[2024-09-02] MEDS: SODIUM CHLORIDE 0.9% 500 ML INFUS.BAG IV ONE (03:01)
[2024-09-02 03:18] LABS: BASO % 0.7 % (0-2.0); EOS % 3.6 % (0-4.5); HEMOGLOBIN 11.9 GM/dL (10.7-15.3); LYMPH % 40.3 % (8-40); MCH 29.2 pg (25.7-33.7); MCHC 33.1 g/dl (32.0-36.0); MEAN CELL VOLUME 88.1 fl (80-96); MONO % 5.9 % (3.8-10.2); NEUT % 49.5 % (42.8-82.8); PLATELET COUNT 238 10^3/uL (134-434); RBC 4.08 M/mm3 (3.60-5.2); RDW 13.1 % (11.6-15.6); WHITE BLOOD COUNT 8.3 K/mm3 (4.0-10.0)
[2024-09-02 03:32] LABS: POTASSIUM 4.1 mmol/L (3.5-5.1)
[2024-09-02 03:34] LABS: ALBUMIN 3.4 g/dl (3.4-5.0); CALCIUM 8.6 mg/dL (8.5-10.1)
[2024-09-02 03:37] LABS: CREATININE 0.6 mg/dL (0.55-1.3)
[2024-09-02 03:39] LABS: BILIRUBIN,TOTAL 0.3 mg/dL (0.2-1); TOT PROT 6.9 g/dl (6.4-8.2)
== END 2024-09-02 04:37 | disposition home or self-care (01) ==
LOC: JER 01:56
PROC: 3E033NZ Introduction of Analgesics, Hypnotics, Sedatives into Peripheral Vein, Percutaneous Approach (ICD-10-PCS; principal; 2024-09-02)
PROC: 3E033GC Introduction of Other Therapeutic Substance into Peripheral Vein, Percutaneous Approach (ICD-10-PCS; 2024-09-02)
DX: R53.1 Weakness (principal); R11.0 Nausea; R53.83 Other fatigue; R05.9 Cough, unspecified; Z20.822 Contact with and (suspected) exposure to COVID-19
CPT/HCPCS: 0241U-QW; 36415; 80053; 85025; 99284-25; J0131

== ENCOUNTER 2025-01-11 03:28 | Emergency (ER) | payer OTHER ==
[2025-01-11 03:34] VITALS: BP 101/54; PULSE 93; RESP 18; TEMP 98.6; BMI 35.7
[2025-01-11] MEDS ORDERED: ALBUTEROL SO4 2.5/IPRATROPIUM 0.5 INH SOL 3 ML VIAL.NEB. NEB ONE (03:41)
[2025-01-11] MEDS: ALBUTEROL SO4 2.5/IPRATROPIUM 0.5 INH SOL 3 ML VIAL.NEB. NEB ONE (04:26)
[2025-01-11] MEDS ORDERED: DEXAMETHASONE 4 MG TABLET (FP) ONE (05:12)
[2025-01-11] MEDS: DEXAMETHASONE 4 MG TABLET (FP) PO ONE (05:14)
== END 2025-01-11 05:24 | disposition home or self-care (01) ==
LOC: JER 03:28
PROC: 3E0F7GC Introduction of Other Therapeutic Substance into Respiratory Tract, Via Natural or Artificial Opening (ICD-10-PCS; principal; 2025-01-11)
DX: U07.1 COVID-19 (principal); R05.9 Cough, unspecified; R09.81 Nasal congestion
CPT/HCPCS: 0241U-QW; 71046-TC-FY; 99284-25